=== PATIENT | female | born 1950 | race Caucasian/White ===

== ENCOUNTER → 2016-12-25 | Day surgery (SDC) | payer OTHER ==
[~2016-12-25] MED LIST: ACETAMINOPHEN 1000 MG/100 ML VIAL IV ONE; ACETAMINOPHEN 325 MG TAB ONE; ARTIFICIAL TEARS OPTH OINT 3.5 APPLIC/3.5 GM TUBO ONE; BALANCED SALT SOLN OPHT IRRIG 15 ML BTL ONE; LACTATED RINGER'S 1000 ML INJ 1,000 ML ONE; LIDOCAINE 2%/EPINEPHrine PF 1:200,000 20ML SDV ONE; MIDAZOLAM HCL 2 MG/2 ML VIAL ONE; NEOMYCIN/POLYMYXIN/BACITRACIN OINT 15 GM TUBE ONE; NEOMYCIN/POLYMYXIN/HYDROCORT OTIC SUSP 10 ML BTL ONE; ONDANSETRON HCL 4 MG/2 ML VIAL IV PUSH ONE; PROPOFOL 200 MG/20 ML AMP IV ONE; ceFAZolin INJ 1,000 MG VIAL ONE
--- NOTE | 2016-12-25 09:37 | TN ---
cc: JOE VACA M.D. 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 SURGEON Joe Vaca MD ANESTHESIA LMA general, a total of 10 cc of 2% lidocaine with epinephrine ESTIMATED BLOOD LOSS Minimal COMPLICATIONS None PROCEDURE She was properly consented, marked and properly anesthetized. The skin was sterilized with Microcyn and sterile draping applied. Utilizing a 15 blade, excess skin was done on the upper eyelid through a subciliary incision. The skin was elevated in the lower eyelid by leaving a couple of millimeters of muscle and then elevating the myocutaneous flap. In the upper eyelid, we explored the inner bags finding very minimal fat, however was trimmed. The lower eyelid, I went all the way down to around the orbital septum and down to the arcus marginalis. This was properly released. The fat contents were trimmed and properly anchored into the orbital septum. After assuring meticulous hemostasis, closure of the wounds were done utilizing 6-0 Monocryl suture and a running 6-0 Prolene for the upper eyelid, a lateral canthopexy was done from the inner superior aspect of the orbital subperiosteum to the lateral canthal of the lower eyelid. 5-0 clear nylon was utilized. A small trim of skin was done from the lower eyelid and the closure was done utilizing the same 6-0 Monocryl suture and 6-0 Prolene as well. Antibiotic ointment was applied. The running Prolene was anchored with Steri-Strips. She was awakened and extubated in the operating room and transferred back to postanesthesia care unit in stable condition. No complications appreciated. The patient tolerated the procedure fairly well. MD SERGO Buchanan/LUCIA /9:04 AM /9:27 AM
== END | disposition home or self-care (01) ==
LOC: ESDC 06:22
PROVIDERS: ATTEND Plastic Surgery
DX: Z41.1 Encounter for cosmetic surgery (principal)
CPT/HCPCS: 00103; 00300; 15820; 15822; 21282; J0131; J0690; J2250; J2405; J3010; J7120